=== PATIENT | male | born 1980 | race American Indian/Alaskan Native ===

== ENCOUNTER 2018-03-12 18:56 | Emergency (ER) | payer MEDICAID, OTHER, SELFPAY ==
[2018-03-12 19:08] VITALS: BP 115/75; PULSE 73; RESP 16; TEMP 36.8; O2SAT 98; BMI 27.8
--- NOTE | 2018-03-12 19:18 | ED.LOWEXIN ---
HPI - Extremity Injury (Lower) General Chief Complaint: Extremity Injury, Lower Stated Complaint: KORTNEY WENT THROUGH RT FOOT Time Seen by Provider: 03/12/18 19:17 Source: patient Mode of arrival: ambulatory Limitations: no limitations History of Present Illness HPI Narrative: 37-year-old smoker with history of anxiety presents with family in the chief complaint of a puncture wound to his right foot. 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 [place] was [place]. His tetanus is current. He denies fever or chills. His pain is worse while ambulating and improves with rest. MD complaint: foot injury Injury: Right: foot Type of Injury: puncture wound Place: work Severity: moderate Relieving factors: rest Exacerbating factors: weight bearing and movement Context: stepped on nail Associated symptoms: able to partially bear weight Other symptoms: none Treatments prior to arrival: bandage Related Data Home Medications Medication Instructions Recorded Confirmed buprenorphine-naloxone [Suboxone] #0 07/03/17 Previous Rx's Medication Instructions Recorded lorazepam [Ativan] 1 mg PO PRN PRN #15 tab 02/17/16 ondansetron [Zofran ODT] 4 mg SUBLINGUAL Q6HP PRN #8 odt 07/03/17 ciprofloxacin HCl 500 mg PO BID #20 tab 03/12/18 doxycycline hyclate 100 mg PO BID #20 cap 03/12/18 Allergies Allergy/AdvReac Type Severity Reaction Status Date / Time bee pollen [BEE POLLEN] Allergy Intermediate Unverified 03/12/18 19:07 Review of Systems Review of Systems All systems reviewed & are unremarkable except as noted in HPI and below Constitutional Denies chills, Denies fever(s), Denies lethargy and Denies weakness Eyes Denies change in vision, Denies eye discharge, Denies irritation and Denies loss of vision ENT Ears, Nose, Mouth, and Throat: Denies change in voice, Denies neck pain and Denies sore throat Cardiovascular Denies chest pain, Denies irregular heart rhythm, Denies lightheadedness, Denies palpitations, Denies dyspnea, Denies dyspnea on exertion and Denies orthopnea Respiratory Denies cough, Denies dyspnea, Denies dyspnea on exertion and Denies wheezing Gastrointestinal Gastrointestinal: Denies abdominal pain, Denies change in bowel habits, Denies diarrhea, Denies nausea and Denies vomiting Genitourinary Denies hematuria, Denies flank pain, Denies urinary incontinence and Denies urinary urgency Musculoskeletal Reports limited range of motion and Denies neck pain Integumentary/Breasts Denies pruritus, Denies erythema, Denies rash and Denies wounds Neurologic Denies confusion, Denies loss of vision and Denies weakness Psychiatric Denies anxiety, Denies confusion, Denies depression, Denies homicidal ideation and Denies suicidal ideation Endocrine Denies palpitations Hematologic/Lymphatic Denies easy bruising Allergic/Immunologic Denies wheezing [facility] Social History Smoking Status: Current every day smoker Exam Narrative Exam Narrative: GEN: AOx3 and in mild distress EYES: Pupils are equal, round, and reactive to light and accommodation. Extraoccular muscles are intact bilaterally. There is no subconjunctival hemorrhage or exudate. CHEST: Lungs are clear to auscultation bilaterally and free of wheezes, rales, or rhonchi. Heart rate is regular rhythm, there are no murmurs, clicks, rubs, or gallops. There is no chest wall tenderness. ABD: Abdomen is soft and nontender. There is no guarding or rebound. Bowel sounds are normal in all 4 quadrants. There is no mass or organomegaly. EXT: Full but painful range of motion of the right foot. There is a through and through puncture wound of the soft tissue of the right lateral foot overlying the 5th metatarsal with no suspected involvement of the bones. There is no active bleeding. The wound appears clean without obvious contamination SKIN: Warm, pink, and dry. No erythema or rash Initial Vital Signs Initial Vital Signs: Vital Signs Temperature 98.3 F 03/12/18 19:08 Pulse Rate 73 03/12/18 19:08 Respiratory Rate 16 03/12/18 19:08 Blood Pressure 115/75 03/12/18 19:08 Pulse Oximetry 98 03/12/18 19:08 Course Orders Ordered: ED Orders 03/12/18 19:22 XR foot RT min 3V Stat Discontinued Medications Doxycycline Hyclate (Vibramycin) 100 mg PO NOW ONE Stop: 03/12/18 19:29 Last Admin: 03/12/18 19:38 Dose: 100 mg Ketorolac Tromethamine (Toradol) 60 mg IM NOW ONE Stop: 03/12/18 19:25 Last Admin: 03/12/18 19:37 Dose: 60 mg Levofloxacin (Levaquin) 500 mg PO NOW ONE Stop: 03/12/18 19:29 Last Admin: 03/12/18 19:38 Dose: 500 mg Vital Signs - 8 hr 03/12/18 19:08 03/12/18 20:00 03/12/18 20:30 Temperature 98.3 F 98.3 F Pulse Rate 73 73 68 Respiratory Rate 16 16 14 Blood Pressure 115/75 115/75 Blood Pressure [Left Arm] 122/65 Pulse Oximetry 98 98 100 MDM - Extremity Injury (Lower) Imaging Data Foot Xray: Radiologist's impression: [address] [address] XRay Report Signed Patient: Antonino Garay DMR#: [id number] : 1980Acct:[id number] Age/Sex: 37 / MDate of Service: 03/12/18 Loc: ED Accession Number: [id number] Procedure: XR foot RT min 3V Ordering Provider: Jose Ballesteros D.O. PROCEDURE: XR FOOT RT MIN 3V INDICATIONS: R foot injury , large fish hook through plantar surface through to dorsum of foot TECHNIQUE: 3 views of the foot were acquired. COMPARISON: None. FINDINGS: Bones: No fractures or dislocations. No suspicious bony lesions. Soft tissues: There is mild soft tissue swelling along the lateral aspect of the right fifth metatarsal. No radiopaque foreign body identified. IMPRESSION: Mild soft tissue swelling along the lateral aspect of the right fifth metatarsal. No retained radiopaque foreign body identified. Dictated by: Jacky Patterson M.D. on 03/12/2018 at 21:48 Approved by: Jacky Patterson M.D. on 03/12/2018 at 21:51 [facility] Narrative Medical decision making narrative: Patient had a puncture wound that was both through a work boot and exposed to salt water raising the risk of both Pseudomonas and vibrio hence the decision to use a combination antibiotic therapy. The patient was strongly encouraged to staff his foot and avoid work for most of the week as possible to allow more prompt healing and prevent worsening of his symptoms. He is encouraged to soak his foot multiple times daily in warm water and Epsom salts and to cover and dry dressing being careful not to occlude the opening which would weak drainage less likely. Extensive bedside return precautions discussed and the presence of a family member. They both verbalized their understanding and had questions answered to their apparent satisfaction Discharge Plan Departure Patient Disposition: Home Clinical Impression: Puncture wound of foot Discharge Date/Time: 03/12/18 20:46 Interventions: ED Discharge Assessment Last Done: 03/12/18 20:54 Instructions: DI for Puncture Wound Activity Restrictions/Additional Instructions: *You have been diagnosed with [ puncture wound right foot ] *What to do: *Take medications as directed: you will need 2 different antibiotics to cover the potential infections you are at risk for. *Follow up with your primary care provider in 2-3 days, call for an appointment. Let them know you were seen in the Emergency Department and that we ask that you be seen in follow up *Return to ER if you should have any new, worsening or concerning symptoms, such as [ Increased pain, swelling or drainage] Prescriptions: New doxycycline hyclate 100 mg capsule 100 mg PO BID Qty: 20 RF: 0 ciprofloxacin HCl 500 mg tablet 500 mg PO BID Qty: 20 RF: 0 No Action lorazepam [Ativan] 1 MG tablet 1 mg PO PRN PRNQty: 15 RF: 0 buprenorphine-naloxone [Suboxone] 12 MG/3 MG film Qty: 0 RF: 0 ondansetron [Zofran ODT] 4 MG tablet,disintegrating 4 mg Sublingual Q6HP PRNQty: 8 RF: 0 Referrals: Regina Link MD [Primary Care Provider] -
--- NOTE | 2018-03-12 19:22 | DI.RAD.S_ITS ---
PROCEDURE: XR FOOT RT MIN 3V INDICATIONS: R foot injury , large fish hook through plantar surface through to dorsum of foot TECHNIQUE: 3 views of the foot were acquired. COMPARISON: None. FINDINGS: Bones: No fractures or dislocations. No suspicious bony lesions. Soft tissues: There is mild soft tissue swelling along the lateral aspect of the right fifth metatarsal. No radiopaque foreign body identified. IMPRESSION: Mild soft tissue swelling along the lateral aspect of the right fifth metatarsal. No retained radiopaque foreign body identified. Dictated by: Jacky Patterson M.D. on 03/12/2018 at 21:48 Approved by: Jacky Patterson M.D. on 03/12/2018 at 21:51
[2018-03-12] MEDS: KETOROLAC 60 MG/2 ML VIAL IM (19:37)
[2018-03-12] MEDS: DOXYCYCLINE HYCLATE 100 MG TABLET PO (19:38)
[2018-03-12] MEDS: levoFLOXacin 500 MG TABLET PO (19:38)
[2018-03-12 20:00] VITALS: BP 115/75; PULSE 73; RESP 16; TEMP 36.8; O2SAT 98; BMI 27.8
[2018-03-12 20:30] VITALS: BP 122/65; PULSE 68; RESP 14; O2SAT 100
--- NOTE | 2018-03-13 02:35 | ED_ITS ---
HPI - Extremity Injury (Lower) General Chief Complaint: Extremity Injury, Lower Stated Complaint: KORTNEY WENT THROUGH RT FOOT Time Seen by Provider: 03/12/18 19:17 Source: patient Mode of arrival: ambulatory Limitations: no limitations History of Present Illness HPI Narrative: 37-year-old smoker with history of anxiety presents with family in the chief complaint of a puncture wound to his right foot. 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 He was actively working on a [place]. His tetanus is current. He denies fever or chills. His pain is worse while ambulating and improves with rest. MD complaint: foot injury Injury: Right: foot Type of Injury: puncture wound Place: work Severity: moderate Relieving factors: rest Exacerbating factors: weight bearing and movement Context: stepped on nail Associated symptoms: able to partially bear weight Other symptoms: none Treatments prior to arrival: bandage Related Data Home Medications Medication Instructions Recorded Confirmed buprenorphine-naloxone [Suboxone] #0 07/03/17 Previous Rx's Medication Instructions Recorded lorazepam [Ativan] 1 mg PO PRN PRN #15 tab 02/17/16 ondansetron [Zofran ODT] 4 mg SUBLINGUAL Q6HP PRN #8 odt 07/03/17 ciprofloxacin HCl 500 mg PO BID #20 tab 03/12/18 doxycycline hyclate 100 mg PO BID #20 cap 03/12/18 Allergies Allergy/AdvReac Type Severity Reaction Status Date / Time bee pollen [BEE POLLEN] Allergy Intermediate Unverified 03/12/18 19:07 Review of Systems Review of Systems All systems reviewed & are unremarkable except as noted in HPI and below Constitutional Denies chills, Denies fever(s), Denies lethargy and Denies weakness Eyes Denies change in vision, Denies eye discharge, Denies irritation and Denies loss of vision ENT Ears, Nose, Mouth, and Throat: Denies change in voice, Denies neck pain and Denies sore throat Cardiovascular Denies chest pain, Denies irregular heart rhythm, Denies lightheadedness, Denies palpitations, Denies dyspnea, Denies dyspnea on exertion and Denies orthopnea Respiratory Denies cough, Denies dyspnea, Denies dyspnea on exertion and Denies wheezing Gastrointestinal Gastrointestinal: Denies abdominal pain, Denies change in bowel habits, Denies diarrhea, Denies nausea and Denies vomiting Genitourinary Denies hematuria, Denies flank pain, Denies urinary incontinence and Denies urinary urgency Musculoskeletal Reports limited range of motion and Denies neck pain Integumentary/Breasts Denies pruritus, Denies erythema, Denies rash and Denies wounds Neurologic Denies confusion, Denies loss of vision and Denies weakness Psychiatric Denies anxiety, Denies confusion, Denies depression, Denies homicidal ideation and Denies suicidal ideation Endocrine Denies palpitations Hematologic/Lymphatic Denies easy bruising Allergic/Immunologic Denies wheezing [facility] Social History Smoking Status: Current every day smoker Exam Narrative Exam Narrative: GEN: AOx3 and in mild distress EYES: Pupils are equal, round, and reactive to light and accommodation. Extraoccular muscles are intact bilaterally. There is no subconjunctival hemorrhage or exudate. CHEST: Lungs are clear to auscultation bilaterally and free of wheezes, rales, or rhonchi. Heart rate is regular rhythm, there are no murmurs, clicks, rubs, or gallops. There is no chest wall tenderness. ABD: Abdomen is soft and nontender. There is no guarding or rebound. Bowel sounds are normal in all 4 quadrants. There is no mass or organomegaly. EXT: Full but painful range of motion of the right foot. There is a through and through puncture wound of the soft tissue of the right lateral foot overlying the 5th metatarsal with no suspected involvement of the bones. There is no active bleeding. The wound appears clean without obvious contamination SKIN: Warm, pink, and dry. No erythema or rash Initial Vital Signs Initial Vital Signs: Vital Signs Temperature 98.3 F 03/12/18 19:08 Pulse Rate 73 03/12/18 19:08 Respiratory Rate 16 03/12/18 19:08 Blood Pressure 115/75 03/12/18 19:08 Pulse Oximetry 98 03/12/18 19:08 Course Orders Ordered: ED Orders 03/12/18 19:22 XR foot RT min 3V Stat Discontinued Medications Doxycycline Hyclate (Vibramycin) 100 mg PO NOW ONE Stop: 03/12/18 19:29 Last Admin: 03/12/18 19:38 Dose: 100 mg Ketorolac Tromethamine (Toradol) 60 mg IM NOW ONE Stop: 03/12/18 19:25 Last Admin: 03/12/18 19:37 Dose: 60 mg Levofloxacin (Levaquin) 500 mg PO NOW ONE Stop: 03/12/18 19:29 Last Admin: 03/12/18 19:38 Dose: 500 mg Vital Signs - 8 hr 03/12/18 19:08 03/12/18 20:00 03/12/18 20:30 Temperature 98.3 F 98.3 F Pulse Rate 73 73 68 Respiratory Rate 16 16 14 Blood Pressure 115/75 115/75 Blood Pressure [Left Arm] 122/65 Pulse Oximetry 98 98 100 MDM - Extremity Injury (Lower) Imaging Data Foot Xray: Radiologist's impression: [address] [address] XRay Report Signed Patient: Antonino Garay DMR#: [id number] : 1980Acct:[id number] Age/Sex: 37 / MDate of Service: 03/12/18 Loc: ED Accession Number: [id number] Procedure: XR foot RT min 3V Ordering Provider: Jose Ballesteros D.O. PROCEDURE: XR FOOT RT MIN 3V INDICATIONS: R foot injury , large fish hook through plantar surface through to dorsum of foot TECHNIQUE: 3 views of the foot were acquired. COMPARISON: None. FINDINGS: Bones: No fractures or dislocations. No suspicious bony lesions. Soft tissues: There is mild soft tissue swelling along the lateral aspect of the right fifth metatarsal. No radiopaque foreign body identified. IMPRESSION: Mild soft tissue swelling along the lateral aspect of the right fifth metatarsal. No retained radiopaque foreign body identified. Dictated by: Jacky Patterson M.D. on 03/12/2018 at 21:48 Approved by: Jacky Patterson M.D. on 03/12/2018 at 21:51 [facility] Narrative Medical decision making narrative: Patient had a puncture wound that was both through a work boot and exposed to salt water raising the risk of both Pseudomonas and vibrio hence the decision to use a combination antibiotic therapy. The patient was strongly encouraged to staff his foot and avoid work for most of the week as possible to allow more prompt healing and prevent worsening of his symptoms. He is encouraged to soak his foot multiple times daily in warm water and Epsom salts and to cover and dry dressing being careful not to occlude the opening which would weak drainage less likely. Extensive bedside return precautions discussed and the presence of a family member. They both verbalized their understanding and had questions answered to their apparent satisfaction Discharge Plan Departure Patient Disposition: Home Clinical Impression: Puncture wound of foot Discharge Date/Time: 03/12/18 20:46 Interventions: ED Discharge Assessment Last Done: 03/12/18 20:54 Instructions: DI for Puncture Wound Activity Restrictions/Additional Instructions: *You have been diagnosed with [ puncture wound right foot ] *What to do: *Take medications as directed: you will need 2 different antibiotics to cover the potential infections you are at risk for. *Follow up with your primary care provider in 2-3 days, call for an appointment. Let them know you were seen in the Emergency Department and that we ask that you be seen in follow up *Return to ER if you should have any new, worsening or concerning symptoms , such as [ Increased pain, swelling or drainage] Prescriptions: New doxycycline hyclate 100 mg capsule 100 mg PO BID Qty: 20 RF: 0 ciprofloxacin HCl 500 mg tablet 500 mg PO BID Qty: 20 RF: 0 No Action lorazepam [Ativan] 1 MG tablet 1 mg PO PRN PRNQty: 15 RF: 0 buprenorphine-naloxone [Suboxone] 12 MG/3 MG film Qty: 0 RF: 0 ondansetron [Zofran ODT] 4 MG tablet,disintegrating 4 mg Sublingual Q6HP PRNQty: 8 RF: 0 Referrals: Regina Link MD [Primary Care Provider] -
== END 2018-03-12 20:46 | disposition home or self-care (01) ==
PROVIDERS: Emergency Provider Emergency Medicine; PCP Family Medicine
DX: S91.331A Puncture wound without foreign body, right foot, initial encounter (principal); W26.8XXA Contact with other sharp object(s), not elsewhere classified, initial encounter
CPT/HCPCS: 73630; 96372; 99282; 99283; J1885

== ENCOUNTER → 2020-02-25 10:41 | Outpatient (CLI) | payer OTHER, SELFPAY ==
--- NOTE | 2020-02-25 | DI.US.S_ITS ---
PROCEDURE: US CAROTID DOPPLER BI INDICATIONS: Encounter for general adult medical examination wi TECHNIQUE: Color and pulse Doppler interrogation was performed of both carotid systems, with image documentation and velocity measurements. COMPARISON: None. FINDINGS: Stenosis calculations are based on SRU (Society of Radiologists in Ultrasound) criteria. Right side: Brachial blood pressure: 112/74 mm Hg. Common carotid artery peak systolic velocity: 97 cm/sec. Internal carotid artery peak systolic velocity: 81 cm/sec. Internal carotid artery end diastolic velocity: 36 cm/sec. External carotid artery peak systolic velocity: 106 cm/sec. ICA/CCA peak systolic ratio: 0.85 . Foster scale imaging description: No plaque Percent internal carotid artery stenosis: None . Vertebral artery: Flow direction is antegrade. Left side: Brachial blood pressure: 113/75 mm Hg. Common carotid artery peak systolic velocity: 132 cm/sec. Internal carotid artery peak systolic velocity: 100 cm/sec. Internal carotid artery end diastolic velocity: 44 cm/sec. External carotid artery peak systolic velocity: 118 cm/sec. ICA/CCA peak systolic ratio: 0.76 . Foster scale imaging description: No plaque Percent internal carotid artery stenosis: None . Vertebral artery: Flow direction is antegrade. IMPRESSION: Negative examination. No ICA stenosis identified Dictated by: Christofer Mueller M.D. on 02/25/2020 at 11:48 Approved by: Christofer Mueller M.D. on 02/25/2020 at 11:54
== END ==
PROVIDERS: PCP Family Medicine; Referring Provider Family Medicine; Visit Provider Family Medicine
DX: Z00.00 Encounter for general adult medical examination without abnormal findings (principal)
CPT/HCPCS: 93880

== ENCOUNTER → 2022-03-25 12:32 | Outpatient (CLI) | payer OTHER, SELFPAY ==
--- NOTE | 2022-03-25 12:37 | DI.RAD.S_ITS ---
PROCEDURE: XR KNEE LT 1TO2V INDICATIONS: Left knee pain TECHNIQUE: 3 views of the knee were acquired. COMPARISON: None. FINDINGS: Bones: No fractures or dislocations. No suspicious bony lesions. Soft tissues: No joint effusion. No suspicious soft tissue calcifications. IMPRESSION: Unremarkable left knee radiographs Approved by: Natalio Diallo M.D. on 03/25/2022 at 17:11
== END ==
PROVIDERS: PCP Family Medicine; Referring Provider Physician Assistant; Visit Provider Physician Assistant
DX: M25.562 Pain in left knee (principal)
CPT/HCPCS: 73560

== ENCOUNTER → 2022-12-30 09:28 | Outpatient (CLI) | payer OTHER, SELFPAY ==
--- NOTE | 2022-12-30 09:31 | DI.RAD.S_ITS ---
PROCEDURE: XR CHEST 2V INDICATIONS: Screening for underwater diving TECHNIQUE: 2 views of the chest were acquired. COMPARISON: [facility], , CHEST 2 VIEW, 07/02/2016, 15:16. FINDINGS: Surgical changes and devices: None. Lungs and pleura: Lungs are clear. No pleural effusions or pneumothorax. Mediastinum: Mediastinal contours are normal. Heart size is normal. Bones and chest wall: No suspicious bony abnormalities. Soft tissues appear unremarkable. IMPRESSION: No acute cardiopulmonary abnormalities or focal airspace disease. Dictated by: Jama Davies M.D. on 12/30/2022 at 10:59 Approved by: Jama Davies M.D. on 12/30/2022 at 10:59
== END ==
PROVIDERS: PCP Family Medicine; Referring Provider Family Medicine; Visit Provider Family Medicine
DX: Z01.89 Encounter for other specified special examinations (principal)
CPT/HCPCS: 71046

== ENCOUNTER → 2023-06-17 14:38 | Outpatient (CLI) | payer OTHER, SELFPAY | PROVIDERS: PCP Family Medicine; Referring Provider Nurse Practitioner Family; Visit Provider Nurse Practitioner Family | DX: Z02.1 Encounter for pre-employment examination (principal); Z87.891 Personal history of nicotine dependence | CPT/HCPCS: 94060; 94726; 94729 ==

== ENCOUNTER 2023-07-06 06:24 | Emergency (ER) | payer OTHER, SELFPAY ==
[2023-07-06] VITALS (14 sets, daily range): BP systolic 135–157; BP diastolic 77–102; PULSE 103–128; RESP 13–23; TEMP 36.6; O2SAT 92–98; BMI 36.9
--- NOTE | 2023-07-06 06:38 | DI.RAD.S_ITS ---
PROCEDURE: XR CHEST 1V INDICATIONS: SOB TECHNIQUE: One view of the chest was acquired. COMPARISON: [facility], , XR CHEST 2V, 12/30/2022, 9:30. [facility], , CHEST 2 VIEW, 07/02/2016, 15:16. FINDINGS: Surgical changes and devices: None. Lungs and pleura: Lungs are clear. No pleural effusions or pneumothorax. Mediastinum: Mediastinal contours appear normal. Heart size is normal. Bones and chest wall: No suspicious bony lesions. Overlying soft tissues appear unremarkable. IMPRESSION: No acute cardiopulmonary abnormality is seen. Dictated by: Bandar Easley M.D. on 07/06/2023 at 8:13 Approved by: Bandar Easley M.D. on 07/06/2023 at 8:14
--- NOTE | 2023-07-06 06:47 | ED.NAVMDI ---
HPI - Nausea/Vomiting/Diarrhea <Philipp Momin DO - Last Filed: 07/08/23 07:01> General Chief complaint: Nausea/Vomiting/Diarrhea Stated complaint: cant breath, left side face tingling, heart racing Time Seen by Provider: 07/06/23 06:28 Source: patient Mode of arrival: Ambulatory History of Present Illness HPI Narrative: Patient is a 42-year-old male. Has had a cough for the past several days. He states last evening he started to feel like his heart was beating fast and some chest pressure and shortness of breath. Also was having nausea. Generalized fatigue. No abdominal pain. No urinary symptoms. No fevers. He does report that he is having some tingling on the left side of his face and in his left hand. No fevers. He is on antibiotics that was prescribed by an outside facility for his cough. No specific diagnosis prior to the administration of antibiotics. Related Data Home Medications Medication Instructions Recorded Confirmed buprenorphine 12 mg-naloxone 3 mg ##0 07/03/17 sublingual film (Suboxone) Previous Rx's Medication Instructions Recorded lorazepam 1 mg tablet (Ativan) 1 mg PO PRN PRN #15 tabs 02/17/16 ondansetron 4 mg disintegrating 4 mg sublingual Q6HP PRN ##8 07/03/17 tablet (Zofran ODT) ciprofloxacin HCl 500 mg tablet 500 mg PO BID #20 tabs 03/12/18 doxycycline hyclate 100 mg capsule 100 mg PO BID #20 caps 03/12/18 hydroxyzine HCl 25 mg tablet 25 mg PO TID PRN anxiety #30 tabs 07/06/23 ondansetron 4 mg disintegrating 4 mg PO Q8H PRN nausea and 07/06/23 tablet vomiting #30 tabs Allergies Allergy/AdvReac Type Severity Reaction Status Date / Time bee pollen [BEE POLLEN] Allergy Intermediate Verified 07/06/23 08:31 Review of Systems <DO Patt Hdz Last Filed: 07/08/23 07:01> Cardiovascular Cardiovascular: Reports system reviewed and no additional complaints, except as documented Respiratory Respiratory: Reports system reviewed and no additional complaints, except as documented Gastrointestinal Gastrointestinal: Reports system reviewed and no additional complaints, except as documented Integumentary/Breasts Skin/Breast: Reports system reviewed and no additional complaints, except as documented Neurologic Neurologic: Reports system reviewed and no additional complaints, except as documented Patient History <Philipp Momin DO - Last Filed: 07/08/23 07:01> Social History Smoking Status: Current every day smoker Smoking Status: Current every day smoker Substance Use Type: does not use Exam <Philipp Momin DO - Last Filed: 07/08/23 07:01> Initial Vital Signs Initial Vital Signs: Vital Signs Temperature 98 F 07/06/23 06:33 Pulse Rate 128 H 07/06/23 06:33 Respiratory Rate 20 07/06/23 06:33 Blood Pressure 135/84 07/06/23 06:33 Pulse Oximetry 98 07/06/23 06:33 Oxygen Delivery Method Room Air 07/06/23 06:33 Const General: cooperative, comfortable and No ill appearing HENMT Head: normal to inspection and normocephalic Resp Effort & Inspection: cough Auscultation: clear to auscultation bilaterally and no wheezes Cardio Rate: tachycardic Rhythm: regular rhythm GI Inspection: non-distended Skin General: no rashes or lesions noted Neuro General: patient alert, patient awake and moves all extremities Extrem General: No edema <Dahlia Harley MD - Last Filed: 07/08/23 00:13> Initial Vital Signs Initial Vital Signs: Vital Signs Temperature 98 F 07/06/23 06:33 Pulse Rate 128 H 07/06/23 06:33 Respiratory Rate 20 07/06/23 06:33 Blood Pressure 135/84 07/06/23 06:33 Pulse Oximetry 98 07/06/23 06:33 Oxygen Delivery Method Room Air 07/06/23 06:33 Course <Philipp Momin DO - Last Filed: 07/08/23 07:01> Orders Ordered: Discontinued Medications Droperidol (Droperidol 5 Mg/2 Ml Vial) 2.5 mg IV NOW ONE Stop: 07/06/23 08:27 Last Admin: 07/06/23 08:32 Dose: 2.5 mg Documented By: MORGAN Sodium Chloride (Normal Saline 0.9%) 1,000 mls @ 1,000 mls/hr IV BOLUS ONE Stop: 07/06/23 09:25 Last Infusion: 07/06/23 09:34 Dose: Infused Documented By: Admin: 07/06/23 08:33 Dose: 1,000 mls/hr Documented By: MORGAN Ondansetron HCl (Ondansetron 4 Mg/2 Ml Inj) 4 mg IV NOW ONE Stop: 07/06/23 07:07 Last Admin: 07/06/23 07:14 Dose: 4 mg Documented By: BREE Potassium Chloride (Potassium Chloride 20 Meq Tab) 40 meq PO NOW ONE Stop: 07/06/23 07:04 Last Admin: 07/06/23 07:14 Dose: 40 meq Documented By: BREE Potassium Chloride (Potassium Chloride 20 Meq Tab) 20 meq PO NOW ONE Stop: 07/06/23 07:04 Last Admin: 07/06/23 07:14 Dose: 20 meq Documented By: BREE Vital Signs Vital signs: Vital Signs - 8 hr 07/06/23 06:33 07/06/23 06:52 07/06/23 07:00 Temperature 98 F Pulse Rate 128 H 116 H 118 H Respiratory Rate 20 23 19 Blood Pressure 135/84 Pulse Oximetry 98 94 Oxygen Delivery Method Room Air Room Air 07/06/23 07:30 07/06/23 08:00 07/06/23 08:30 Temperature Pulse Rate 111 H 110 H 121 H Respiratory Rate 16 21 Blood Pressure Pulse Oximetry 95 98 Oxygen Delivery Method 07/06/23 08:33 07/06/23 08:33 07/06/23 09:00 Temperature Pulse Rate 111 H 110 H Respiratory Rate 17 13 Blood Pressure 150/102 H Pulse Oximetry 96 94 Oxygen Delivery Method 07/06/23 09:00 07/06/23 09:53 07/06/23 10:00 Temperature Pulse Rate 116 H 110 H Respiratory Rate Blood Pressure 137/85 Pulse Oximetry 93 93 Oxygen Delivery Method <Dahlia Harley MD - Last Filed: 07/08/23 00:13> Orders Ordered: Discontinued Medications Droperidol (Droperidol 5 Mg/2 Ml Vial) 2.5 mg IV NOW ONE Stop: 07/06/23 08:27 Last Admin: 07/06/23 08:32 Dose: 2.5 mg Documented By: MORGAN Sodium Chloride (Normal Saline 0.9%) 1,000 mls @ 1,000 mls/hr IV BOLUS ONE Stop: 07/06/23 09:25 Last Infusion: 07/06/23 09:34 Dose: Infused Documented By: Admin: 07/06/23 08:33 Dose: 1,000 mls/hr Documented By: MORGAN Ondansetron HCl (Ondansetron 4 Mg/2 Ml Inj) 4 mg IV NOW ONE Stop: 07/06/23 07:07 Last Admin: 07/06/23 07:14 Dose: 4 mg Documented By: BREE Potassium Chloride (Potassium Chloride 20 Meq Tab) 40 meq PO NOW ONE Stop: 07/06/23 07:04 Last Admin: 07/06/23 07:14 Dose: 40 meq Documented By: BREE Potassium Chloride (Potassium Chloride 20 Meq Tab) 20 meq PO NOW ONE Stop: 07/06/23 07:04 Last Admin: 07/06/23 07:14 Dose: 20 meq Documented By: BREE Vital Signs Vital signs: Vital Signs - 8 hr 07/06/23 06:33 07/06/23 06:52 07/06/23 07:00 Temperature 98 F Pulse Rate 128 H 116 H 118 H Respiratory Rate 20 23 19 Blood Pressure 135/84 Pulse Oximetry 98 94 Oxygen Delivery Method Room Air Room Air 07/06/23 07:30 07/06/23 08:00 07/06/23 08:30 Temperature Pulse Rate 111 H 110 H 121 H Respiratory Rate 16 21 Blood Pressure Pulse Oximetry 95 98 Oxygen Delivery Method 07/06/23 08:33 07/06/23 08:33 07/06/23 09:00 Temperature Pulse Rate 111 H 110 H Respiratory Rate 17 13 Blood Pressure 150/102 H Pulse Oximetry 96 94 Oxygen Delivery Method 07/06/23 09:00 07/06/23 09:53 07/06/23 10:00 Temperature Pulse Rate 116 H 110 H Respiratory Rate Blood Pressure 137/85 Pulse Oximetry 93 93 Oxygen Delivery Method MDM - Nausea/Vomiting/Diarrhea <Philipp Momin DO - Last Filed: 07/08/23 07:01> Lab Data 07/06/23 06:37 07/06/23 06:37 Labs: Lab Results 07/06/23 07/06/23 Range/Units 06:37 06:45 WBC 6.3 (4.5-11.0) X10^3/uL RBC 4.36 L (4.5-5.9) X10^6/uL Hgb 9.9 L (13.5-17.5) g/dL Hct 31.0 L (41-53) % MCV 71.2 L (80-100) fL MCH 22.7 L (26-34) PG MCHC 31.8 (30-36) % RDW 22.2 H (11.6-14.8) % Plt Count 225 (150-400) X10^3/uL Neut % (Auto) 68.0 (50-75) % Lymph % (Auto) 21.5 L (25-40) % Mellette % (Auto) 8.8 (3-14) % Eos % (Auto) 0.3 L (2-4) % Baso % (Auto) 1.4 (0-2) % Neut # (Auto) 4300 (0355-7144) /uL Lymph # (Auto) 1400 (1036-2285) /uL Mellette # (Auto) 600 (0-900) /uL Eos # (Auto) 0 (0-450) /uL Baso # (Auto) 100 (0-100) /uL RBC Morphology Not Reportable Anisocytosis 2+ H D-Dimer 1239 H (<500) ng/ml Sodium 135 L (137-145) mmol/L Potassium 2.7 L* (3.4-5.1) mmol/L Chloride 94 L (98-107) mmol/L Carbon Dioxide 22 (22-32) mmol/L BUN < 2 L (9-20) mg/dL Creatinine 0.74 (0.66-1.25) mg/dL Estimated GFR > 60 (>60) mL/min BUN/Creatinine Ratio 2.7 L (6-22) Glucose 146 H (70-100) mg/dL Calcium 9.1 (8.4-10.2) mg/dL Total Bilirubin 1.0 (0.2-1.3) mg/dL AST 289 H (17-59) IU/L ALT 80 H (<50) IU/L Alkaline Phosphatase 130 H (38-126) U/L Total Creatine Kinase 227 H (55-170) U/L Troponin I < 0.012 (0.01-0.034) ng/mL Total Protein 8.7 H (6.3-8.2) g/dL Albumin 3.9 (3.5-5.0) g/dL Globulin 4.8 H (1.7-4.1) g/dL Albumin/Globulin Ratio 0.8 L (1.0-2.8) Lipase 246 (23-300) U/L SARS-CoV-2 (PCR) Negative (Negative) Influenza A (RT-PCR) Flu a positive H (NEGATIVE) Influenza B (RT-PCR) Flu b negative (NEGATIVE) RSV (PCR) Negative (Negative) ECG Data Attestation: I personally reviewed and interpreted this ECG as follows: Interpretation: Sinus tachycardia Ventricular rate 117 Normal axis Normal QRS Normal QTC Nonspecific ST T wave changes MDM Narrative Medical decision making narrative: Patient does appear somewhat anxious. Tachycardic on the EKG. Nonspecific changes. Lungs are clear. Not hypoxic. Labs ordered. Chest x-ray ordered. Care turned over to Dr. Harley to follow-up and disposition. <Dahlia Harley MD - Last Filed: 07/08/23 00:13> Lab Data Labs: Lab Results 07/06/23 07/06/23 Range/Units 06:37 06:45 WBC 6.3 (4.5-11.0) X10^3/uL RBC 4.36 L (4.5-5.9) X10^6/uL Hgb 9.9 L (13.5-17.5) g/dL Hct 31.0 L (41-53) % MCV 71.2 L (80-100) fL MCH 22.7 L (26-34) PG MCHC 31.8 (30-36) % RDW 22.2 H (11.6-14.8) % Plt Count 225 (150-400) X10^3/uL Neut % (Auto) 68.0 (50-75) % Lymph % (Auto) 21.5 L (25-40) % Mellette % (Auto) 8.8 (3-14) % Eos % (Auto) 0.3 L (2-4) % Baso % (Auto) 1.4 (0-2) % Neut # (Auto) 4300 (1457-6509) /uL Lymph # (Auto) 1400 (4333-1710) /uL Mellette # (Auto) 600 (0-900) /uL Eos # (Auto) 0 (0-450) /uL Baso # (Auto) 100 (0-100) /uL RBC Morphology Not Reportable Anisocytosis 2+ H D-Dimer 1239 H (<500) ng/ml Sodium 135 L (137-145) mmol/L Potassium 2.7 L* (3.4-5.1) mmol/L Chloride 94 L (98-107) mmol/L Carbon Dioxide 22 (22-32) mmol/L BUN < 2 L (9-20) mg/dL Creatinine 0.74 (0.66-1.25) mg/dL Estimated GFR > 60 (>60) mL/min BUN/Creatinine Ratio 2.7 L (6-22) Glucose 146 H (70-100) mg/dL Calcium 9.1 (8.4-10.2) mg/dL Total Bilirubin 1.0 (0.2-1.3) mg/dL AST 289 H (17-59) IU/L ALT 80 H (<50) IU/L Alkaline Phosphatase 130 H (38-126) U/L Total Creatine Kinase 227 H (55-170) U/L Troponin I < 0.012 (0.01-0.034) ng/mL Total Protein 8.7 H (6.3-8.2) g/dL Albumin 3.9 (3.5-5.0) g/dL Globulin 4.8 H (1.7-4.1) g/dL Albumin/Globulin Ratio 0.8 L (1.0-2.8) Lipase 246 (23-300) U/L SARS-CoV-2 (PCR) Negative (Negative) Influenza A (RT-PCR) Flu a positive H (NEGATIVE) Influenza B (RT-PCR) Flu b negative (NEGATIVE) RSV (PCR) Negative (Negative) MDM Narrative Medical decision making narrative: Patient does appear somewhat anxious. Tachycardic on the EKG. Nonspecific changes. Lungs are clear. Not hypoxic. Labs ordered. Chest x-ray ordered. Care turned over to Dr. Harley to follow-up and disposition. Patient remained tachycardic despite fluids and droperidol. D-dimer elevated, so CT angio was obtained. CT negative for PE or other acute process. Patient did test positive for influenza A. Due to duration of his symptoms he has not a candidate for Tamiflu at this time. Patient advised of all lab and imaging findings. Hydroxyzine sent to pharmacy for anxiety, recommended discussing potential long-term antianxiety medications with his primary care physician. Nausea medication sent to pharmacy of choice. Discharge Plan Departure Patient Disposition: Home Clinical Impression: Anxiety, Viral syndrome, Chest pain Instructions: DI for Influenza -- Adult, DI for Vomiting -- Adult Activity Restrictions/Additional Instructions: your labs today were normal, you are not having a heart attack, you do not have a blood clot in your lungs. You did test positive for influenza. I sent medications for anxiety and nausea to the pharmacy. Your heart rate was persistently elevated here, I recommend that he follow up with your primary care physician to see if you need to start any medications for this. Prescriptions: New ondansetron 4 mg tablet,disintegrating 4 mg PO Q8H PRN (Reason: nausea and vomiting) Qty: 30 0RF hydroxyzine HCl 25 mg tablet 25 mg PO TID PRN (Reason: anxiety) Qty: 30 0RF No Action lorazepam [Ativan] 1 MG tablet 1 mg PO PRN PRNQty: 15 0RF buprenorphine-naloxone [Suboxone] 12 MG/3 MG film Qty: 0 ondansetron [Zofran ODT] 4 MG tablet,disintegrating 4 mg Sublingual Q6HP PRNQty: 8 0RF doxycycline hyclate 100 mg capsule 100 mg PO BID Qty: 20 0RF ciprofloxacin HCl 500 mg tablet 500 mg PO BID Qty: 20 0RF Referrals: Regina Link MD [Primary Care Provider] - Stand Alone Forms: Patient Portal/API
[2023-07-06 06:50] LABS: Add Manual Diff / Slide Review NO; Basophils Absolute Auto 100 /uL (0-100); Basophils Percent Auto 1.4 % (0-2); Eosinophils Absolute Auto 0 /uL (0-450); Eosinophils Percent Auto 0.3 % (2-4); Hemoglobin 9.9 g/dL (13.5-17.5); Lymphocytes Absolute Auto 1400 /uL (1100-4500); Lymphocytes Percent Auto 21.5 % (25-40); Mean Corpuscular HGB Conc 31.8 % (30-36); Mean Corpuscular Hemoglobin 22.7 PG (26-34); Mean Corpuscular Volume 71.2 fL (80-100); Monocytes Absolute Auto 600 /uL (0-900); Monocytes Percent Auto 8.8 % (3-14); Neutrophils Absolute Auto 4300 /uL (1500-7000); Platelet Count 225 X10^3/uL (150-400); Red Blood Cell Count 4.36 X10^6/uL (4.5-5.9); Red Cell Distribution Width 22.2 % (11.6-14.8); White Blood Cell Count 6.3 X10^3/uL (4.5-11.0)
[2023-07-06 07:00] LABS: Alanine Aminotransferase 80 IU/L (<50); Albumin 3.9 g/dL (3.5-5.0); Albumin Globulin Ratio 0.8 (1.0-2.8); Alkaline Phosphatase 130 U/L (38-126); Aspartate Aminotransferase 289 IU/L (17-59); Calcium 9.1 mg/dL (8.4-10.2); Carbon Dioxide 22 mmol/L (22-32); Chloride 94 mmol/L (98-107); Creatine Kinase 227 U/L (55-170); Estimated Glomerular Filt Rate > 60 mL/min (>60); Globulin 4.8 g/dL (1.7-4.1); Glucose 146 mg/dL (70-100); HEMOLYSIS < 15 (0-50); Lipase 246 U/L (23-300); Sodium 135 mmol/L (137-145); Total Protein 8.7 g/dL (6.3-8.2)
[2023-07-06 07:01] LABS: BUN Creatinine Ratio 2.7 (6-22); Blood Urea Nitrogen < 2 mg/dL (9-20)
[2023-07-06 07:03] LABS: Potassium 2.7 mmol/L (3.4-5.1)
[2023-07-06 07:04] LABS: Anisocytosis 2+
[2023-07-06 07:11] LABS: Troponin I < 0.012 ng/mL (0.01-0.034)
[2023-07-06] MEDS: ONDANSETRON 4 MG/2 ML INJ IV (07:14)
[2023-07-06] MEDS: POTASSIUM CHLORIDE 20 MEQ TAB PO (07:14)
[2023-07-06] MEDS: POTASSIUM CHLORIDE 20 MEQ TAB 40 MEQ PO (07:14)
[2023-07-06 07:40] LABS: COVID-19 CEPHEID 4-PLEX PCR Negative (Negative); Influenza A - CEPHEID Flu A POSITIVE (NEGATIVE); Influenza B - CEPHEID Flu B NEGATIVE (NEGATIVE); Respiratory Syncytial Virus Negative (Negative)
[2023-07-06] MEDS: DROPERIDOL 5 MG/2 ML VIAL 2.5 MG IV (08:32)
[2023-07-06] MEDS: SODIUM CHLORIDE 0.9% 1,000 ML 1000 ML IV (08:33)
[2023-07-06 10:13] LABS: D Dimer 1239 ng/ml (<500)
--- NOTE | 2023-07-06 10:19 | DI.CT.S_ITS ---
PROCEDURE: CT ANGIO CHEST PE PROTOCOL INDICATIONS: dyspnea, chest pain, elevated dimer TECHNIQUE: After the administration of intravenous contrast, 2 mm thick sections acquired from the pulmonary apices to the posterior costophrenic angles. 3-dimensional maximum intensity projection (MIP) coronal and sagittal reformats were then acquired through the thorax. For radiation dose reduction, the following was used: automated exposure control, adjustment of mA and/or kV according to patient size. COMPARISON: [facility], CR, XR CHEST 1V, 07/06/2023, 6:41. FINDINGS: Image quality: Diagnostic. Pulmonary arteries: Pulmonary arteries are normal in size, and demonstrate no intraluminal filling defects to suggest central pulmonary embolism. Lower Neck: No enlarged lymph nodes. Thyroid: No thyroid nodules which require sonographic follow up, per consensus guidelines. Axillae: No enlarged lymph nodes. Chest Wall: Unremarkable. Bones: Unremarkable. Lungs and Pleura: No pneumothorax or pleural effusions. No consolidation or suspicious nodules. Heart: Heart size is normal. No pericardial effusion. Thoracic Vessels: No aortic aneurysm. Mediastinum and Roxy: No enlarged lymph nodes. Esophagus: No wall thickening. Mild hiatal hernia. Upper Abdomen: Hepatic steatosis is present. Otherwise, visualized upper abdomen solid organs and bowel loops appear normal. IMPRESSION: No pulmonary embolus. No acute pulmonary process. Dictated by: Celina Mejia M.D. on 07/06/2023 at 11:00 Approved by: Celina Mejia M.D. on 07/06/2023 at 11:02
== END 2023-07-06 11:20 | disposition home or self-care (01) ==
PROVIDERS: Emergency Medicine; Emergency Provider Emergency Medicine; PCP Family Medicine
DX: J10.1 Influenza due to other identified influenza virus with other respiratory manifestations (principal); F41.9 Anxiety disorder, unspecified; R07.9 Chest pain, unspecified; R06.02 Shortness of breath; R00.0 Tachycardia, unspecified; R79.89 Other specified abnormal findings of blood chemistry; Z20.822 Contact with and (suspected) exposure to COVID-19
CPT/HCPCS: 0241U; 36415; 71045; 71275; 80053; 82550; 83690; 84484; 85025; 85379; 93005; 96361; 96374; 96375; 99284; J1790; J2405